=== PATIENT | female | born 1955 | race Caucasian/White ===

== ENCOUNTER 2016-11-25 08:00 | Outpatient (RCR) | payer BC | END 2016-11-29 12:00 | disposition home or self-care (01) | LOC: OT 08:00 | PROVIDERS: ATTEND Physician Assistant Medical | DX: M77.8 Other enthesopathies, not elsewhere classified (principal) ==

== ENCOUNTER → 2016-11-28 | Outpatient (CLI) | payer BC | LOC: RAD 07:24 | PROVIDERS: ATTEND Family Medicine | DX: Z12.31 Encounter for screening mammogram for malignant neoplasm of breast (principal) ==